=== PATIENT | female | born 1975 | race African-American/Black ===

== ENCOUNTER 2023-12-05 17:11 | Emergency (ER) | payer MEDICARE ==
[~2023-12-05] VITALS: Ht 172.7 cm; Wt 109.0 kg
[2023-12-05 17:18] VITALS: O2SAT 100
[2023-12-05] MEDS: SODIUM CHLORIDE 0.9% 1,000 ML IV ONE (18:00)
[2023-12-05] MEDS: ONDANSETRON HCL 4MG/2ML INJ IV STA (18:00)
[2023-12-05 18:09] LABS: BASOPHILS % 1.7 % (0.0-2.0); HEMATOCRIT. 31.8 % (36.0-48.0); HEMOGLOBIN. 9.7 g/dL (12.0-16.0); LYMPHOCYTES % 37.4 % (20.0-50.0); MEAN CORPUSCULAR HEMOGLOBIN 20.9 pg (28.0-32.0); MEAN CORPUSCULAR HGB CONC 30.7 g/dL (31.0-37.0); MEAN CORPUSCULAR VOLUME 68.3 fL (81.0-99.0); MEAN PLATELET VOLUME 8.8 fl (7.4-10.4); MONOCYTES % 4.3 % (2.0-8.0); NEUTROPHILS % 52.6 % (40.0-76.0); PLATELET 280 x1000/uL (130-400); RED BLOOD CELL COUNT 4.66 mill/uL (4.2-5.4); RED CELL DISTRIBUTION WIDTH 21.6 % (11.6-14.6); WHITE BLOOD COUNT 6.2 x1000/uL (4.5-11.0)
[2023-12-05 18:11] LABS: ADD RBC MORPHOLOGY YES; DIFFERENTIAL COMMENT 1
[2023-12-05 18:13] LABS: CHLORIDE 106 mEq/L (98-107); SODIUM 141 mEq/L (136-145)
[2023-12-05 18:14] LABS: CALCIUM 9.3 mg/dL (8.7-10.4); CARBON DIOXIDE 24 mEq/L (21-32)
[2023-12-05 18:18] LABS: HCG SCREEN NEGATIVE
[2023-12-05 18:19] LABS: CREATININE 0.8 mg/dL (0.6-1.0); ETHANOL BLOOD 227 mg/dL (<10); GLUCOSE 93 mg/dL (70-105); UREA NITROGEN BLOOD 9 mg/dL (9-23)
[2023-12-05 18:20] LABS: PHOSPHORUS 4.6 mg/dL (2.5-4.9)
[2023-12-05 18:21] LABS: ACETAMINOPHEN < 2 ug/mL (10-30)
[2023-12-05 18:47] LABS: HYPOCHROMASIA 2+; MICROCYTOSIS 3+; OVALOCYTES 1+
[2023-12-05 19:20] LABS: PLATELET ESTIMATE NORMAL
[2023-12-05] MEDS: POTASSIUM CHLORIDE 20MEQ TABLET SR PO ONE (22:24)
[2023-12-06 00:43] LABS: CLARITY URINE CLEAR (CLEAR); COLOR URINE YELLOW (YELLOW); GLUCOSE URINE NEGATIVE (NEGATIVE); KETONES URINE NEGATIVE (NEGATIVE); LEUKOCYTE ESTERASE URINE TRACE (NEGATIVE); NITRITE URINE NEGATIVE (NEGATIVE); OCCULT BLOOD URINE NEGATIVE (NEGATIVE); PH URINE 5.5 (4.5-8.0); PROTEIN URINE 1+ (NEGATIVE); SPECIFIC GRAVITY URINE 1.012 (1.005-1.030); UROBILINOGEN URINE 0.2 E.U./dL (0.2-1.0)
[2023-12-06 00:56] LABS: *AMPHETAMINES SCREEN URINE NEGATIVE (NEGATIVE); *BARBITURATES SCREEN URINE NEGATIVE (NEGATIVE); *BENZODIAZEPINES SCREEN URINE NEGATIVE (NEGATIVE); *COCAINE SCREEN URINE NEGATIVE (NEGATIVE); CANNABINOID URINE SCREEN NEGATIVE (NEGATIVE); ECSTASY MDMA SCREEN URINE NEGATIVE (NEGATIVE); METHADONE URINE SCREEN NEGATIVE (NEGATIVE); OPIATES URINE SCREEN NEGATIVE (NEGATIVE); PHENCYCLIDINE URINE SCREEN NEGATIVE (NEGATIVE)
[2023-12-06 01:13] LABS: BACTERIA URINE TRACE; RBC URINE 0-2 /hpf (0-2); SQUAMOUS EPITHELIAL CELL URINE 1+ /lpf (RARE/1+)
[2023-12-06] MEDS: NITROFURANTOIN 100MG M/M CAPSULE PO STA (02:35)
[2023-12-06] MEDS: LORAZEPAM 2MG/ML INJ IM ONE ×2 (02:36→09:53)
[2023-12-06] MEDS: HALOPERIDOL LACTATE 5MG/ML VIAL IM ONE (02:36)
[2023-12-06] MEDS: OLANZAPINE 10 MG/VIAL IM ONE (09:53)
[2023-12-06 15:28] VITALS: BP 140/90; PULSE 86; RESP 14; TEMP 98.6
== END 2023-12-06 15:52 ==
LOC: EDBD 17:11 → ER 17:11 → CANBEDREQ 18:31 → ER 12-06 15:52
DX: F10.129 Alcohol abuse with intoxication, unspecified (principal); R41.82 Altered mental status, unspecified; Y90.7 Blood alcohol level of 200-239 mg/100 ml; Z20.822 Contact with and (suspected) exposure to COVID-19
CPT/HCPCS: 80048; 80307; 80329; 80320 ×2; 84703; 83690; 83735; 84100; 85025; 36415 ×2; 99285; 80305; 81003; 96361; 96372; 96374; 87426; J2405; J7030; J3490; J2060; G0480

== ENCOUNTER 2024-04-07 10:02 | Emergency (ER) | payer MEDICARE, MEDICAID ==
[~2024-04-07] VITALS: Ht 170.2 cm; Wt 100.0 kg
[2024-04-07 10:07] VITALS: BP 129/85; PULSE 142; RESP 18; TEMP 98.4; O2SAT 98
[2024-04-07] MEDS ORDERED: SODIUM CHLORIDE 0.9% 500 ML IV ONE (10:30)
[2024-04-07 11:17] LABS: BASOPHILS % 0.7 % (0.0-2.0); EOSINOPHILS % 1.2 % (0.0-5.0); HEMATOCRIT. 32.2 % (36.0-48.0); HEMOGLOBIN. 9.4 g/dL (12.0-16.0); LYMPHOCYTES % 14.7 % (20.0-50.0); MEAN CORPUSCULAR HEMOGLOBIN 20.6 pg (28.0-32.0); MEAN CORPUSCULAR HGB CONC 29.1 g/dL (31.0-37.0); MEAN CORPUSCULAR VOLUME 70.7 fL (81.0-99.0); MEAN PLATELET VOLUME 9.6 fl (7.4-10.4); MONOCYTES % 4.3 % (2.0-8.0); NEUTROPHILS % 79.1 % (40.0-76.0); PLATELET 220 x1000/uL (130-400); RED BLOOD CELL COUNT 4.56 mill/uL (4.2-5.4); RED CELL DISTRIBUTION WIDTH 22.2 % (11.6-14.6); WHITE BLOOD COUNT 13.9 x1000/uL (4.5-11.0)
[2024-04-07 11:18] LABS: PARTIAL THROMBOPLASTIN TIME 24.6 sec (23.4-31.0); PROTHROMBIN TIME 11.4 sec (9.6-11.0)
[2024-04-07 11:21] LABS: ADD RBC MORPHOLOGY YES; DIFFERENTIAL COMMENT 1
[2024-04-07 11:25] LABS: CHLORIDE 109 mEq/L (98-107); POTASSIUM 3.5 mEq/L (3.5-5.1); SODIUM 138 mEq/L (136-145)
[2024-04-07 11:26] LABS: CARBON DIOXIDE 18 mEq/L (21-32)
[2024-04-07] MEDS ORDERED: IPRATROPIUM BROMIDE (0.02%) 0.5MG/2.5ML NEB HHN NR (11:30)
[2024-04-07 11:31] LABS: CREATININE 1.1 mg/dL (0.6-1.0); GLUCOSE 238 mg/dL (70-105); UREA NITROGEN BLOOD 15 mg/dL (9-23)
[2024-04-07 11:32] LABS: TROPONIN I HIGH SENSITIVITY 12 ng/L (3.0-34)
[2024-04-07 11:40] LABS: HCG SCREEN NEGATIVE
[2024-04-07 11:47] LABS: ANISOCYTOSIS 2+; HYPOCHROMASIA 1+; MICROCYTOSIS 2+; OVALOCYTES 1+; PLATELET ESTIMATE NORMAL
== END 2024-04-07 11:08 ==
LOC: ER 10:14
DX: I21.4 Non-ST elevation (NSTEMI) myocardial infarction (principal); F17.200 Nicotine dependence, unspecified, uncomplicated; J44.89 Other specified chronic obstructive pulmonary disease
CPT/HCPCS: 99285; 92950; 71045; 80048; 84703; 83880; 85025; 85610; 85730; 84484; 36415; 93005; J7040